=== PATIENT | female | born 1950 | race Caucasian/White ===

== ENCOUNTER 2025-06-11 08:00 | Day surgery (SDC) | payer OTHER ==
[2025-06-08 09:53] VITALS: BP 104/55
[2025-06-08 10:06] LABS: BASO % 0.8 % (0.1-1.2); EOS # 0.14 (0.04-0.54); EOS % 2.4 % (0.7-7.0); LYMPH # 2.48 (1.18-3.74); LYMPH % 42.1 % (19.3-53.1); MEAN PLATELET VOLUME 10.40 fl (9.4-12.4); MONO # 0.44 (0.24-0.82); MONO % 7.5 % (4.7-12.5); NEUT # 2.77 (1.56-6.13); NEUT % 47.0 % (34.0-71.1); RED CELL DISTRIBUTION WIDTH 13.8 % (11.6-14.4)
[2025-06-08 10:32] LABS: INR 1.04
[2025-06-08 10:45] LABS: ALT/SGPT 49.0 U/L (12-78); AST/SGOT 41.0 U/L (15-37); BILIRUBIN TOTAL 0.9 mg/dL (0.3-1.2); BUN CREA RATIO 15.0 (7.0-25.0); CREATININE SERUM 0.94 mg/dL (0.55-1.02); GFR 58.37; GLOBULINA 4.2 G/DL (2.4-3.5); GLUCOSE FASTING 108.0 mg/dL (65-100); OSMOLALITY SERUM 282.0 MOSM/KG (275-295)
[~2025-06-11] VITALS: Ht 154.9 cm; Wt 54.9 kg
[~2025-06-11 08:00] MED LIST: GRALISE600 MG PO; LEVOTHYROXINE25 MCG PO; RYBELSUS14 MG PO; TOPROL XL25 M1 PO
== END 2025-06-11 17:30 | disposition home or self-care (01) ==
LOC: CIR.AMB 08:00
PROVIDERS: ATTEND Internal Medicine
DX: R93.3 Abnormal findings on diagnostic imaging of other parts of digestive tract (principal); K86.9 Disease of pancreas, unspecified; R93.5 Abnormal findings on diagnostic imaging of other abdominal regions, including retroperitoneum; Z88.0 Allergy status to penicillin; Z88.6 Allergy status to analgesic agent; Z88.2 Allergy status to sulfonamides